=== PATIENT | female | born 1935 | race Caucasian/White ===

== ENCOUNTER 2018-05-01 15:31 | Inpatient (IN) ==
--- NOTE | 2018-05-01 16:41 | ED ---
HPI General Chief Complaint: Psychiatric Symptoms Stated Complaint: Psych eval / [facility]CS[facility] Time Seen by Provider: 05/01/18 16:15 Source: other Mode of arrival: ambulatory Limitations: language barrier (Lithuanian-speaking; is said to speak Jamaican, but refuses) and altered mental status (Dementia) History of Present Illness HPI Narrative: 82-year-old, Lithuanian-speaking female, presents to the emergency department under Rubin act. She arrived from [facility]. She has history of dementia. According to the Rubin act report the patient suffers from advanced dementia and has had agitation and aggressive behavior since admission. She has had multiple medication changes attempting to calm her behavior as well as numerous nonmedical interventions. However she continues hitting, kicking and cursing. Most recently she had another patient this morning with no provocation. My HPI is limited secondary to the patient being uncooperative. She does speak Jamaican but continues to speak excessively in Lithuanian. I cannot get her to stop talking long enough for her to answer a question. I continued to attempt asking her questions, but she would not stop talking and listen. Therefore, HPI is limited. Related Data Home Medications Medication Instructions Recorded Confirmed calcium carbonate [Calcium 600] 600 mg PO BID 05/01/18 05/01/18 cholecalciferol (vitamin D3) 2,000 unit PO DAILY 05/01/18 05/01/18 [Vitamin D3] divalproex [Depakote] 500 mg PO TID 05/01/18 05/01/18 melatonin 10 mg PO HS 05/01/18 05/01/18 pantoprazole [Protonix] 20 mg PO DAILY 05/01/18 05/01/18 pravastatin 20 mg PO DAILY 05/01/18 05/01/18 risperidone [Risperdal] 0.5 mg PO BID 05/01/18 05/01/18 Allergies Allergy/AdvReac Type Severity Reaction Status Date / Time No Known Allergies Allergy Uncoded 08/13/14 16:28 Review of Systems ROS Unobtainable ROS Unobtainable: unobtainable due to mental condition PMFSH Medical History Medical History Anxiety (Acute) Dementia (Acute) Dysphagia (Acute) Gastro-esophageal reflux (Acute) Hypercholesteremia (Acute) Insomnia (Acute) Muscle weakness (Acute) Osteoporosis (Acute) Surgical history unknown (Acute) Vitamin deficiency (Acute) Social History Social History Substance History: No History of Abuse Smoking Status: Unknown if ever smoked How Often Do You Have a Drink Containing Alcohol: Unable to Obtain Recent Travel in [place] within the Last 8 Weeks: No Recent Out of Country Travel within the Last 8 Weeks: No Exam Narrative Exam Narrative: GENERAL: Well-nourished, well-developed elderly, female patient, in no acute distress SKIN: Warm and dry. HEAD: Atraumatic. Normocephalic. EYES: Pupils equal and round. ENT: Mucosa pink and moist. NECK: Supple. Trachea midline. CARDIOVASCULAR: Regular rate and rhythm. No murmur appreciated. RESPIRATORY: No accessory muscle use. Clear to auscultation. Breath sounds equal bilaterally. GASTROINTESTINAL: Abdomen soft, non-tender, nondistended. Hepatic and splenic margins not palpable. Bowel sounds are active 4 quadrants. MUSCULOSKELETAL: No obvious deformities. No clubbing. No cyanosis. No edema. NEUROLOGICAL: Awake and alert. No obvious cranial nerve deficits. Motor grossly within normal limits. Normal speech. Moves all extremities. 5/5 strength to all extremities. PSYCHIATRIC: No delusional thought processes. No hallucinations. Course Initial Documented Vital Signs Temperature 98.2 F 05/01/18 17:27 Pulse Rate 88 05/01/18 17:27 Respiratory Rate 22 05/01/18 17:27 Blood Pressure 136/88 05/01/18 17:27 Pulse Oximetry 96 05/01/18 17:27 Last Documented Vital Signs Temperature 98.2 F 05/01/18 17:27 Pulse Rate 104 H 05/01/18 18:43 Respiratory Rate 18 05/01/18 18:43 Blood Pressure 107/54 L 05/01/18 18:43 Pulse Oximetry 97 05/01/18 18:[address] [facility] Narrative Medical decision making narrative: Patient presents under a Rubin act. Physical examination and vital signs are essentially unremarkable. Patient has no medical complaints to report. Psych screen has been ordered. If the laboratory results are unremarkable, the patient will be medically cleared for psychiatric evaluation and disposition. I was asked to medically clear this patient. The urine is still pending at this time. The patient's laboratory testing otherwise are within limits. I have spoken with the psych nurse practitioner who has requested that we medically clear the patient before the urine is back so she can get her to the floor. She feels that she would be best suited on the floor and the admitted status. She has agreed to have the nursing staff follow the urine and if it is positive she will have the staff notify the admitting physician or myself. Medical Screen Exam Complete: Yes Emergency Medical Condition: Yes Differential Diagnosis Differential Diagnosis: Dementia, aggressive behavior, agitation, medical clearance for psychiatric evaluation Lab Data Result diagrams: 05/01/18 18:20 05/01/18 18:20 Lab Results 05/01/18 05/01/18 05/01/18 Range/Units 18:20 18:20 18:20 WBC 7.8 (4.0-11.0) th/mm3 RBC 3.75 L (4.00-5.30) mil/mm3 Hgb 12.3 (11.6-15.3) gm/dL Hct 36.4 (35.0-46.0) % MCV 97.1 (80.0-100.0) fL MCH 32.8 (27.0-34.0) pg MCHC 33.8 (32.0-36.0) % RDW 14.6 (11.6-17.2) % Plt Count 193 (150-450) th/mm3 MPV 8.7 (7.0-11.0) fL Neut % (Auto) 49.1 (16.0-70.0) % Lymph % (Auto) 30.5 (9.0-44.0) % [place] % (Auto) 11.4 H (0.0-8.0) % Eos % (Auto) 8.3 H (0.0-4.0) % Baso % (Auto) 0.7 (0.0-2.0) % Neut # (Auto) 3.8 (1.8-7.7) th/mm3 Lymph # (Auto) 2.4 (1.0-4.8) th/mm3 [place] # (Auto) 0.9 (0.0-0.9) th/mm3 Eos # (Auto) 0.6 H (0.0-0.4) th/mm3 Baso # (Auto) 0.1 (0.0-0.2) th/mm3 WBC Differential . Differential Comment Auto diff final Sodium 139 (136-145) meq/L Potassium 3.8 (3.5-5.1) meq/L Chloride 105 (98-107) meq/L Carbon Dioxide 27.8 (21.0-32.0) meq/L Anion Gap 6 (5-15) meq/L BUN 21 H (7-18) mg/dL Creatinine 0.71 (0.50-1.00) mg/dL Estimated GFR 79 L (>89) mL/min Random Glucose 125 H (74-106) mg/dL Calcium 9.2 (8.5-10.1) mg/dL Magnesium 2.4 (1.5-2.5) mg/dL Total Bilirubin 0.3 (0.2-1.0) mg/dL AST 27 (15-37) U/L ALT 29 (10-53) U/L Alkaline Phosphatase 73 (45-117) U/L Total Protein 7.5 (6.4-8.2) g/dL Albumin 3.9 (3.4-5.0) g/dL TSH 2.160 (0.358-3.740) uIU/mL Salicylates Less than 1.7 L (2.8-20.0) mg/dL Acetaminophen Less than 2.0 L (10.0-30.0) mcg/mL Valproic Acid (50-100) mcg/mL Serum Alcohol Less than 3 (0-5) mg/dL 05/01/18 Range/Units 18:20 WBC (4.0-11.0) th/mm3 RBC (4.00-5.30) mil/mm3 Hgb (11.6-15.3) gm/dL Hct (35.0-46.0) % MCV (80.0-100.0) fL MCH (27.0-34.0) pg MCHC (32.0-36.0) % RDW (11.6-17.2) % Plt Count (150-450) th/mm3 MPV (7.0-11.0) fL Neut % (Auto) (16.0-70.0) % Lymph % (Auto) (9.0-44.0) % [place] % (Auto) (0.0-8.0) % Eos % (Auto) (0.0-4.0) % Baso % (Auto) (0.0-2.0) % Neut # (Auto) (1.8-7.7) th/mm3 Lymph # (Auto) (1.0-4.8) th/mm3 [place] # (Auto) (0.0-0.9) th/mm3 Eos # (Auto) (0.0-0.4) th/mm3 Baso # (Auto) (0.0-0.2) th/mm3 WBC Differential Differential Comment Sodium (136-145) meq/L Potassium (3.5-5.1) meq/L Chloride (98-107) meq/L Carbon Dioxide (21.0-32.0) meq/L Anion Gap (5-15) meq/L BUN (7-18) mg/dL Creatinine (0.50-1.00) mg/dL Estimated GFR (>89) mL/min Random Glucose (74-106) mg/dL Calcium (8.5-10.1) mg/dL Magnesium (1.5-2.5) mg/dL Total Bilirubin (0.2-1.0) mg/dL AST (15-37) U/L ALT (10-53) U/L Alkaline Phosphatase (45-117) U/L Total Protein (6.4-8.2) g/dL Albumin (3.4-5.0) g/dL TSH (0.358-3.740) uIU/mL Salicylates (2.8-20.0) mg/dL Acetaminophen (10.0-30.0) mcg/mL Valproic Acid 71 (50-100) mcg/mL Serum Alcohol (0-5) mg/dL Discharge Plan Discharge Disposition Patient Disposition: 30 Still Patient Discharge Condition Condition: Stable Physicians Team ED Provider: Patrick Ren ED Midlevel Provider: Sonja Prajapati Primary Care Provider: Von Hood Rxs /Orders / Referrals /Forms Prescriptions: No Action pantoprazole [Protonix] 20 mg Tablet,Delayed Release (Dr/Ec) 20 mg PO DAILY RF: 0 calcium carbonate [Calcium 600] 600 mg calcium (1,500 mg) Tablet 600 mg PO BID RF: 0 pravastatin 20 mg Tablet 20 mg PO DAILY RF: 0 cholecalciferol (vitamin D3) [Vitamin D3] 2,000 unit Tablet 2,000 unit PO DAILY RF: 0 divalproex [Depakote] 500 mg Tablet,Delayed Release (Dr/Ec) 500 mg PO TID RF: 0 risperidone [Risperdal] 0.5 mg Tablet 0.5 mg PO BID RF: 0 melatonin 10 mg Tablet,Disintegrating 10 mg PO HS RF: 0 Status ED Status: Medically Cleared
[2018-05-01] MEDS ORDERED: QUEtiapine 25 MG Tablet PO ONE ×2 (17:12→18:48)
[2018-05-01 18:40] LABS: Baso # (Auto) 0.1 th/mm3 (0.0-0.2); Baso % (Auto) 0.7 % (0.0-2.0); Eos # (Auto) 0.6 th/mm3 (0.0-0.4); Eos % (Auto) 8.3 % (0.0-4.0); Hematocrit 36.4 % (35.0-46.0); Hemoglobin 12.3 gm/dL (11.6-15.3); Lymph # (Auto) 2.4 th/mm3 (1.0-4.8); Lymph % (Auto) 30.5 % (9.0-44.0); Mean Corpuscular HGB Conc 33.8 % (32.0-36.0); Mean Corpuscular Hemoglobin 32.8 pg (27.0-34.0); Mean Corpuscular Volume 97.1 fL (80.0-100.0); Mean Platelet Volume 8.7 fL (7.0-11.0); Mono # (Auto) 0.9 th/mm3 (0.0-0.9); Mono % (Auto) 11.4 % (0.0-8.0); Neut # (Auto) 3.8 th/mm3 (1.8-7.7); Neut % (Auto) 49.1 % (16.0-70.0); Platelet Count 193 th/mm3 (150-450); Red Blood Count 3.75 mil/mm3 (4.00-5.30); Red Cell Distribution Width 14.6 % (11.6-17.2); White Blood Count 7.8 th/mm3 (4.0-11.0)
[2018-05-01 18:55] LABS: Albumin 3.9 g/dL (3.4-5.0); Anion Gap 6 meq/L (5-15); Aspartate Aminotransferase 27 U/L (15-37); Blood Urea Nitrogen 21 mg/dL (7-18); Calcium 9.2 mg/dL (8.5-10.1); Carbon Dioxide 27.8 meq/L (21.0-32.0); Chloride 105 meq/L (98-107); Glomerular Filtration Rate 79 mL/min (>89); Glucose,Random 125 mg/dL (74-106); Magnesium 2.4 mg/dL (1.5-2.5); Potassium 3.8 meq/L (3.5-5.1); Sodium 139 meq/L (136-145)
[2018-05-01 18:56] LABS: Alanine Aminotransferase 29 U/L (10-53)
[2018-05-01 19:05] LABS: Alkaline Phosphatase 73 U/L (45-117); Total Protein 7.5 g/dL (6.4-8.2)
--- NOTE | 2018-05-01 19:13 | P.PNPSY ---
History of Present Illness HPI Narrative: The patient is a 82-year-old, Norwegian-speaking, , female, resident of [facility] with reported dementia with behaviors, presents to the emergency department under Rubin act initiated by MARI Najera. The Rubin act alleges that the patient has been agitated, aggressive since admission. She has had multiple medication changes attempting to calm behavior as well as numerous non medicinal interventions. However she continues hitting , kicking and cursing. Most recently she had another patient with no provocation. According to her paperwork from the facility she was admitted there February 01, 2018. Reviewing her electronic medical record I see no previous contact with [facility] psychiatry Department. Basic lab work was obtained. The UA is pending. Current VPA level 71. The patient presents to [facility] and she is exhibiting intermittent agitation with wanting to leave the unit. I am unable to engage her in any kind of conversation. Her answers are random. She has been talking nonstop since her arrival at [facility]. She has been wandering into other patient' s rooms, attempting to elope from the unit. She believes that there are some girls by the door and she needs to go and be with them. Attempts at redirecting her patient becomes angry and has made attempts at striking different staff members. She has been medicated with Seroquel 25 mg p.o. with little benefit. At this time this patient requires inpatient treatment in order to more aggressively manage her behaviors with pharmacological interventions. I contacted her son who is listed primary contact. He states that his mother is usually aggressive and so this behavior is not usual for her. He reports no previous psychiatric history. Advised him of admission and he agrees. with such. DX. Dementia with Behaviors Pt will be admitted for further observation, stabilization and safety.
[2018-05-01] MEDS ORDERED: Aluminum/Magnesium/Simethacone Susp 30 ML UDC PO PRN (19:40)
[2018-05-01] MEDS: CALCIUM CARBONATE 600 MG PO SCH (21:52)
[2018-05-02] MEDS: Pantoprazole Sodium 20 MG DR Tablet PO SCH (08:30)
--- NOTE | 2018-05-02 10:51 | P.HPPSY ---
Provisional Diagnosis Admission Date: May 01, 2018 19:43 [place] I.: Dementia with behavioral disturbances Competence Certification of Person's Competence To Provide Express and Informed Consent I have personally examined Nasima Martinez, a person being served at [facility] on, May 02, 2018 1049. Express and informed consent means consent voluntarily given in writing, by a competent person, after sufficient explanation and disclosure of the subject matter involved to enable the person to make a knowing and willful decision without any element of force, fraud, deceit, duress, or other form of constraint or coercion. This person is 18 years of age or older, is not now known to be incompetent to consent to treatment with a guardian advocate, and does not have a health care surrogate or proxy currently making medical treatment decisions. I have found this person to be one of the following: [] Competent to provide express and informed consent, as defined above, for voluntary admission to this facility and is competent to provide express and informed consent for treatment. He/she has the consistent capacity to make well reasoned, willful, and knowing decisions concerning his or her medical or mental health treatment. The person fully and consistently understands the purpose of the admission for examination/placement and is fully capable of personally exercising all rights assured [place]xxx] Incompetent to provide express and informed consent to voluntary admission , and this is incompetent to provide express and informed consent to treatment. The person must be transferred to involuntary status and a petition for a guardian advocate filed with the Circuit Court. [] Refusing to provide express and informed consent to voluntary admission but is competent to provide express and informed consent for treatment. The person must be discharged or transferred to involuntary status. Form shall be completed within 24 hours of a person's arrival at the receiving facility and filed in the clinical record of each person: 1. Admitted on a voluntary basis 2. Permitted to provide express and informed consent to his/her own treatment 3. Allowed to transfer from involuntary to voluntary status 4. Prior to permitting a person to consent to his or her own treatment after having been previously found incompetent to consent to treatment. History of Present Illness Capacity: Lacks capacity History of Present Illness: Patient is a 82-year-old woman, domiciled in a nursing facility were previously living at home with son, with a past psychiatric history of dementia with anxiety along with past medical history significant for hyperlipidemia GERD which patient was brought in under Rubin act after patient was having "violent behaviors, hitting by others at staff and verbally aggressive and threatening" as per [facility] report which patient was admitted to the inpatient psychiatry unit for further evaluation and management. Patient was found heavily on unit unable to provide any adequate history, rambling at times and noted with baseline confusion requiring much redirection as patient constantly would wander into other patient's rooms. As per chart patient was aggressive toward providers in the ED but since transfer to the inpatient unit has not noted to have any aggressive behavior or threatening behavior toward others. 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 He mentions the patient did a lot of wandering in [facility] there was previous to tried on Xanax with not much response to current behavior. As per chart patient has Depakote level which is therapeutic limits. Discussion of continuing current medication regimen was reviewed with patient's son to include Depakote and risperidone along with medications for chronic medical illnesses which she agreed and with modification of treatment as her admission progress. Rest of history unable to obtain due to patient's current mental status and neurocognitive deficits secondary to dementia. - Inpatient Certification I certify that the inpatient services were ordered in accordance with Medicare regulations governing the order. This includes certification that hospital inpatient services are reasonable and necessary and in the case of services not specified as inpatient-only under 42 CFR 419.22(n), that they are appropriately provided as inpatient services in accordance to with the 2-midnight benchmark under 43 CFR 412.3(e) I certify that inpatient psychiatric hospital services are medically necessary. Evaluation and treatment and/or diagnostic testing are expected to improve the patient's condition. The patient needs on a daily basis, active treatment furnished directly by or requiring the supervision of inpatient psychiatric facility personnel. Estimated Total Length of Stay (Days): 8 Plans for Post Hospital Care: SNF Review of Systems All other systems reviewed negative except as stated in HPI PMFSH - History History Provided By: Patient, Family Member, Medical Record - Medical History Medical History: Medical History (Last Updated 05/01/18 @ 17:06 by Cole Monteiro RN) Anxiety Dementia Dysphagia Gastro-esophageal reflux Hypercholesteremia Insomnia Muscle weakness Osteoporosis Surgical history unknown Vitamin deficiency - Tobacco History Smoking Status: Unknown if ever smoked - Alcohol History How Often Do You Have a Drink Containing Alcohol: Unable to Obtain - Substance Use History Substance History: No History of Abuse - Travel History Recent Travel in the [place] Within the Last 8 Weeks: No Recent Travel Out of the Country Within the Last 8 Weeks: No - Immunization History Tetanus Immunization: Unable to Assess Quality Measures - Psychiatric History Psychological trauma history: Unable to assess due to patient's neurocognitive deficits. Violence risk to others in the last 6 months: Increase due to recent aggressive behavior. Violence risk to self in the last 6 months: Low - Substance Abuse History Drug or alcohol use in the past 12 months: Unable to assess due to patient's neurocognitive deficits. - Patient Strengths Patient's strengths (minimum of 2): Verbal and communicative Medications and Allergies Active Medications: Active Medications Al Hydrox/Mg Hydrox/Simethicone (Mag-Al Plus Susp Liq) 30 ml PO Q6H PRN PRN Reason: DYSPEPSIA Al Hydroxide/Mg Hydroxide (Milk Of Magnesia Liq) 30 ml PO Q12H PRN PRN Reason: Mild Constipation Calcium Carbonate (Oscal) 500 mg PO BID [facility] Divalproex Sodium (Depakote Dr) 500 mg PO TID [facility] Lactulose (Lactulose Liq) 30 ml PO DAILY PRN PRN Reason: SEVERE CONSITIPATION Pantoprazole Sodium (Protonix) 20 mg PO DAILY [facility] Last Admin: 05/02/18 08:30 Dose: 20 mg Pravastatin Sodium (Pravachol) 20 mg PO DAILY [facility] Last Admin: 05/02/18 08:30 Dose: 20 mg Risperidone (Risperdal) 0.5 mg PO BID [facility] Sennosides (Senokot) 17.2 mg PO Q12H PRN PRN Reason: Moderate Constipation Vitamin D (Vitamin D3) 2,000 unit PO DAILY [facility] Allergies Allergy/AdvReac Type Severity Reaction Status Date / Time No Known Allergies Allergy Uncoded 08/13/14 16:28 Home Medications Medication Instructions Recorded Confirmed Type calcium carbonate [Calcium 600] 600 mg PO BID 05/01/18 05/01/18 History cholecalciferol (vitamin D3) 2,000 unit PO DAILY 05/01/18 05/01/18 History [Vitamin D3] divalproex [Depakote] 500 mg PO TID 05/01/18 05/01/18 History melatonin 10 mg PO HS 05/01/18 05/01/18 History pantoprazole [Protonix] 20 mg PO DAILY 05/01/18 05/01/18 History pravastatin 20 mg PO DAILY 05/01/18 05/01/18 History risperidone [Risperdal] 0.5 mg PO BID 05/01/18 05/01/18 History Results - Labs CBC & Chem 7: 05/01/18 18:20 05/02/18 08:21 Labs: Laboratory Results - last 24 hr 05/01/18 05/01/18 05/01/18 18:20 18:20 18:20 WBC 7.8 RBC 3.75 L Hgb 12.3 Hct 36.4 MCV 97.1 MCH 32.8 MCHC 33.8 RDW 14.6 Plt Count 193 MPV 8.7 Neut % (Auto) 49.1 Lymph % (Auto) 30.5 [place] % (Auto) 11.4 H Eos % (Auto) 8.3 H Baso % (Auto) 0.7 Neut # (Auto) 3.8 Lymph # (Auto) 2.4 [place] # (Auto) 0.9 Eos # (Auto) 0.6 H Baso # (Auto) 0.1 WBC Differential . Differential Comment Auto diff final Sodium 139 Potassium 3.8 Chloride 105 Carbon Dioxide 27.8 Anion Gap 6 BUN 21 H Creatinine 0.71 Estimated GFR 79 L Random Glucose 125 H Calcium 9.2 Magnesium 2.4 Total Bilirubin 0.3 AST 27 ALT 29 Alkaline Phosphatase 73 Total Protein 7.5 Albumin 3.9 TSH 2.160 Salicylates Less than 1.7 L Acetaminophen Less than 2.0 L Valproic Acid Serum Alcohol Less than 3 05/01/18 18:20 WBC RBC Hgb Hct MCV MCH MCHC RDW Plt Count MPV Neut % (Auto) Lymph % (Auto) [place] % (Auto) Eos % (Auto) Baso % (Auto) Neut # (Auto) Lymph # (Auto) [place] # (Auto) Eos # (Auto) Baso # (Auto) WBC Differential Differential Comment Sodium Potassium Chloride Carbon Dioxide Anion Gap BUN Creatinine Estimated GFR Random Glucose Calcium Magnesium Total Bilirubin AST ALT Alkaline Phosphatase Total Protein Albumin TSH Salicylates Acetaminophen Valproic Acid 71 Serum Alcohol Exam Vital signs: Vital Signs 05/01/18 17:27 05/01/18 18:18 05/01/18 18:43 Temperature 98.2 F Pulse Rate 88 104 H Respiratory Rate 22 18 Blood Pressure 136/88 136/108 H 107/54 L Pulse Oximetry 96 97 05/02/18 06:00 Temperature 98 F Pulse Rate 86 Respiratory Rate 16 Blood Pressure 114/60 Pulse Oximetry 93 L Intake & Output 05/01/18 05/02/18 05/02/18 18:59 06:59 18:59 Weight 100 kg Other: # Voids 1 Narrative: Patient not noted to be in acute distress, no gross motor abnormalities, no signs of tremor or EPS, no psychomotor agitation or retardation. - Constitutional no acute distress Mental Status Examination Appearance: Appropriate Consciousness: Alert Orientation: Person Motor Activity: Normal gait Speech: Unremarkable Language: Adequate Fund of Knowledge: Inadequate Attention and Concentration: Easily distracted Memory: Impaired Mood: Other ("I'm fine") Affect: Labile Thought Process & Associations: Other (concrete) Thought Content: Other (flight of ideas) Hallucination Type: None Delusion Type: None Suicidal Ideation: No Suicidal Plan: No Suicidal Intention: No Homicidal Ideation: No Homicidal Plan: No Homicidal Intention: No Insight: Poor Judgment: Poor Assessment and Plan - Assessment (1) Dementia with behavioral disturbance Code(s): F03.91 - Unspecified dementia with behavioral disturbance Status: Acute - Plan Plan: Estimated LOS: [] days Patient is a 82-year-old woman who carries a diagnosis of dementia, with no previous psychiatric admissions here at [place], who was brought under Rubin act due to recent aggressive behavior at the [facility]. We will have patient resume Depakote 500 mg p.o. 3 times daily along with risperidone 0.5 g p.o. twice daily with upper titration as needed. Patient's Depakote level was found within therapeutic limits and medications and doses were confirmed through the ED upon arrival to the ER with [facility] over the phone. We will request fax of paper copy of patient's medication list from [facility]. Due to patient's dementia patient is able to sign himself voluntarily therefore petition for involuntary hospitalization started. Second opinion requested. We will continue current treatment. Continue to monitor mood and behavior. Hospitalist input appreciated. Discharge planning a progress. Justification for Continued Inpatient Stay: At risk of further decompensation at lower level care.
[2018-05-02 11:11] LABS: Calcium 8.1 mg/dL (8.5-10.1); Carbon Dioxide 30.8 meq/L (21.0-32.0); Potassium 3.8 meq/L (3.5-5.1)
[2018-05-02 11:35] LABS: Chol/HDL Ratio 2.05 Ratio; Free T4 (Free Thyroxine) 0.88 ng/dL (0.76-1.46); HDL Cholesterol 70.9 mg/dL (40.0-60.0)
[2018-05-02] MEDS: Calcium Carbonate 500 MG Tablet PO SCH ×2 (11:40→20:24)
[2018-05-02 11:44] LABS: Hemoglobin A1c 5.9 % (4.3-6.0)
--- NOTE | 2018-05-02 13:05 | P.CONPSY ---
Provisional Diagnosis Admission Date: May 01, 2018 19:43 Mclean I.: Dementia with behavioral disturbances History of Present Illness Service: Psychaitry Primary Care Provider: Von Hood MD History of Present Illness: The patient is a 82 year-old woman, bilingual, , resident of [facility], with psychiatric history dementia with behavioral disturbance, who presents to the emergency department under Rubin act initiated by MARI Najera. The Rubin act alleges that the patient has been agitated, aggressive since admission. She has had multiple medication changes attempting to calm behavior as well as numerous non medicinal interventions. However she continues hitting, kicking and cursing. Most recently she had another patient with no provocation. According to her paperwork from the facility she was admitted there February 01, 2018. Reviewing her electronic medical record I see no previous contact with [facility] psychiatry Department. Basic lab work was obtained. VPA level 71. Patient was consulted to me for second opinion. On my evaluation I found the patient calm, superficially cooperative, she is goal-directed, lining up the towers, stating that she is very happy, that she has been busy "doing this and fixing this". She does not know the reason she was brought to the hospital, she is oriented in person, disoriented in time and place, denies symptoms of depression, she does not present any evidence of suicidal or homicidal ideation, paranoia, visual or auditory hallucinations at this moment. There is no agitation or aggressive behavior at this moment. [facility] - History History Provided By: Medical Record - Medical History Medical History: Medical History (Last Updated 05/01/18 @ 17:06 by Cole Monteiro RN) Anxiety Dementia Dysphagia Gastro-esophageal reflux Hypercholesteremia Insomnia Muscle weakness Osteoporosis Surgical history unknown Vitamin deficiency - Tobacco History Smoking Status: Unknown if ever smoked - Alcohol History How Often Do You Have a Drink Containing Alcohol: Unable to Obtain - Substance Use History Substance History: No History of Abuse - Travel History Recent Travel in the [place] Within the Last 8 Weeks: No Recent Travel Out of the Country Within the Last 8 Weeks: No - Immunization History Tetanus Immunization: Unable to Assess Medications and Allergies Active Medications: Active Medications Al Hydrox/Mg Hydrox/Simethicone (Mag-Al Plus Susp Liq) 30 ml PO Q6H PRN PRN Reason: DYSPEPSIA Al Hydroxide/Mg Hydroxide (Milk Of Magnesia Liq) 30 ml PO Q12H PRN PRN Reason: Mild Constipation Calcium Carbonate (Oscal) 500 mg PO BID [facility] Last Admin: 05/02/18 11:40 Dose: 500 mg Divalproex Sodium (Depakote Dr) 500 mg PO TID [facility] Lactulose (Lactulose Liq) 30 ml PO DAILY PRN PRN Reason: SEVERE CONSITIPATION Melatonin (Melatonin) 10 mg PO HS [facility] Pantoprazole Sodium (Protonix) 20 mg PO DAILY [facility] Last Admin: 05/02/18 08:30 Dose: 20 mg Pravastatin Sodium (Pravachol) 20 mg PO DAILY [facility] Last Admin: 05/02/18 08:30 Dose: 20 mg Risperidone (Risperdal) 0.5 mg PO BID [facility] Last Admin: 05/02/18 11:40 Dose: 0.5 mg Sennosides (Senokot) 17.2 mg PO Q12H PRN PRN Reason: Moderate Constipation Vitamin D (Vitamin D3) 2,000 unit PO DAILY [facility] Last Admin: 05/02/18 11:40 Dose: 2,000 unit Allergies Allergy/AdvReac Type Severity Reaction Status Date / Time No Known Allergies Allergy Uncoded 08/13/14 16:28 Home Medications Medication Instructions Recorded Confirmed Type calcium carbonate [Calcium 600] 600 mg PO BID 05/01/18 05/01/18 History cholecalciferol (vitamin D3) 2,000 unit PO DAILY 05/01/18 05/01/18 History [Vitamin D3] divalproex [Depakote] 500 mg PO TID 05/01/18 05/01/18 History melatonin 10 mg PO HS 05/01/18 05/01/18 History pantoprazole [Protonix] 20 mg PO DAILY 05/01/18 05/01/18 History pravastatin 20 mg PO DAILY 05/01/18 05/01/18 History risperidone [Risperdal] 0.5 mg PO BID 05/01/18 05/01/18 History Exam Vital signs: Vital Signs 05/01/18 17:27 05/01/18 18:18 05/01/18 18:43 Temperature 98.2 F Pulse Rate 88 104 H Respiratory Rate 22 18 Blood Pressure 136/88 136/108 H 107/54 L Pulse Oximetry 96 97 05/02/18 06:00 Temperature 98 F Pulse Rate 86 Respiratory Rate 16 Blood Pressure 114/60 Pulse Oximetry 93 L Intake & Output 05/01/18 05/02/18 05/02/18 18:59 06:59 18:59 Weight 100 kg Other: # Voids 1 Mental Status Examination Appearance: Appropriate Consciousness: Alert Orientation: Person Motor Activity: Normal gait Speech: Unremarkable Language: Adequate Fund of Knowledge: Inadequate Attention and Concentration: Inadequate Memory: Impaired Mood: Appropriate Affect: Appropriate Thought Process & Associations: Loose associations Thought Content: Bizarre thinking Hallucination Type: None Delusion Type: None Suicidal Ideation: No Suicidal Plan: No Suicidal Intention: No Homicidal Ideation: No Homicidal Plan: No Insight: Poor Judgment: Poor Assessment and Plan - Assessment (1) Dementia with behavioral disturbance Code(s): F03.91 - Unspecified dementia with behavioral disturbance Status: Acute - Plan Plan: I have seen and examined this patient, I have reviewed the documentation, I have discussed this case personally with Dr. Adorno, I agree and concur with his assessment and plan. Consult appreciated. Justification for Continued Inpatient Stay: continue admission.
[2018-05-02] MEDS: Divalproex 500 MG DR Tablet PO SCH ×3 (13:42→17:28)
[2018-05-02] MEDS: CALCIUM CARBONATE 600 MG PO SCH (13:43)
--- NOTE | 2018-05-02 13:48 | ECG ---
Date Performed: 05/02/2018 Time Performed: 07:18:45 PTAGE: 82 years EKG: Sinus rhythm WITH FIRST DEGREE AV BLOCK INDETERMINATE AXIS MINIMAL ST DEPRESSION ABNORMAL ECG Since the PREVIOUS TRACING , no significant change noted PREVIOUS TRACIN05/19/2012 12.39 DOCTOR: Trace Coles Interpretating Date/Time 05/02/2018 13:44:33
[2018-05-02] MEDS: Melatonin 5 MG Tablet PO SCH (20:24)
[2018-05-03] MEDS: Pantoprazole Sodium 20 MG DR Tablet PO SCH (08:52)
[2018-05-03] MEDS: Calcium Carbonate 500 MG Tablet PO SCH ×2 (09:08→20:40)
--- NOTE | 2018-05-03 13:04 | P.PNPSY ---
Subjective Remarks: Reviewed electronic medical records and discussed case with staff. Follow-up was conducted in the hallway with DELLA Campa present. Patient was observed on the unit attempting to get into the nurse's station. Patient is grossly confused and appears unable to follow conversations or answer questions at this time. She alternates rapidly between [place] and Thai none of which is making sense. She has had no aggression at this time however there were reports of her wandering into other patient's rooms last night. Mental Status Examination Appearance: Appropriate Consciousness: Alert Orientation: Person Motor Activity: Normal gait Speech: Unremarkable Language: Adequate Fund of Knowledge: Inadequate Attention and Concentration: Easily distracted Memory: Impaired Mood: Other ("I'm fine") Affect: Labile Thought Process & Associations: Other (concrete) Thought Content: Other (flight of ideas) Hallucination Type: None Delusion Type: None Suicidal Ideation: No Suicidal Plan: No Suicidal Intention: No Homicidal Ideation: No Homicidal Plan: No Homicidal Intention: No Insight: Poor Judgment: Poor Assessment and Plan - Assessment (1) Dementia with behavioral disturbance Code(s): F03.91 - Unspecified dementia with behavioral disturbance Status: Acute - Plan Plan: Patient will be reevaluated by the attending psychiatrist. Continue with current treatment plan. Justification for Continued Inpatient Stay: Moving this patient to a less restrictive environment would likely result in decompensation.
--- NOTE | 2018-05-03 18:49 | P.CON ---
History of Present Illness Service: [facility] Consult date: 05/03/18 Requesting Physician: Rafaela Thompson Reason for Consult: Family reports patient complained of chest pain Primary Care Provider: Von Hood MD Chief Complaint: chest pain complatint History of Present Illness: 82-year-old female with past medical history significant for hypercholesteremia, osteoporosis, dysphasia, anxiety, GERD and vitamin D deficiency who presented to the emergency department under Rubin act from [facility] due to aggressiveness and agitation. Apparently patient also became physical hitting, kicking and cursing. Patient has been admitted to psychiatry department for further evaluation. [facility] consulted due to reports of chest pain per family. Patient is seen and examined ambulating in psychiatry mosquera in no acute distress with no visible deficits. She is Israeli-speaking as is this author. She is alert and oriented x0, does not appropriately respond to her name. Disorganized thoughts , pressured speech and intrusive. Multiple attempts made to ask patient if she is in pain both in Israeli and Japanese however at some point patient denies pain and during other points she answers questions inappropriately. Her conversation jumps from topic to topic. Patient is hemodynamically stable. Nurse reports that family had noted patient to complain of chest pain yesterday as well as today. No other acute events reported by nurse. Review of Systems All other systems reviewed negative except as stated in HPI [facility] - History History Provided By: Medical Record - Medical History Medical History: Medical History (Last Reviewed 05/03/18 @ 18:42 by Emma Morris) Anxiety Dementia Dysphagia Gastro-esophageal reflux Hypercholesteremia Insomnia Muscle weakness Osteoporosis Surgical history unknown Vitamin deficiency - Social History I have reviewed the patient's Social History: Yes - Tobacco History Smoking Status: Unknown if ever smoked - Alcohol History How Often Do You Have a Drink Containing Alcohol: Unable to Obtain - Substance Use History Substance History: No History of Abuse - Travel History Recent Travel in the [place] Within the Last 8 Weeks: No Recent Travel Out of the Country Within the Last 8 Weeks: No - Immunization History Tetanus Immunization: Unable to Assess Medications and Allergies Active Medications: Active Medications Al Hydrox/Mg Hydrox/Simethicone (Mag-Al Plus Susp Liq) 30 ml PO Q6H PRN PRN Reason: DYSPEPSIA Al Hydroxide/Mg Hydroxide (Milk Of Magnesia Liq) 30 ml PO Q12H PRN PRN Reason: Mild Constipation Calcium Carbonate (Oscal) 500 mg PO BID [facility] Last Admin: 05/03/18 09:08 Dose: Not Given Lactulose (Lactulose Liq) 30 ml PO DAILY PRN PRN Reason: SEVERE CONSITIPATION Melatonin (Melatonin) 10 mg PO HS [facility] Last Admin: 05/02/18 20:24 Dose: 10 mg Pantoprazole Sodium (Protonix) 20 mg PO DAILY [facility] Last Admin: 05/03/18 08:52 Dose: Not Given Pravastatin Sodium (Pravachol) 20 mg PO DAILY [facility] Last Admin: 05/03/18 08:52 Dose: Not Given Risperidone (Risperdal) 0.5 mg PO BID [facility] Last Admin: 05/03/18 08:52 Dose: 0.5 mg Sennosides (Senokot) 17.2 mg PO Q12H PRN PRN Reason: Moderate Constipation Valproate Sodium (Depakene Liq) 500 mg PO BID [facility] Last Admin: 05/03/18 08:52 Dose: 500 mg Vitamin D (Vitamin D3) 2,000 unit PO DAILY [facility] Last Admin: 05/03/18 08:52 Dose: Not Given Allergies Allergy/AdvReac Type Severity Reaction Status Date / Time No Known Allergies Allergy Uncoded 08/13/14 16:28 Home Medications Medication Instructions Recorded Confirmed Type calcium carbonate [Calcium 600] 600 mg PO BID 05/01/18 05/01/18 History cholecalciferol (vitamin D3) 2,000 unit PO DAILY 05/01/18 05/01/18 History [Vitamin D3] divalproex [Depakote] 500 mg PO TID 05/01/18 05/01/18 History melatonin 10 mg PO HS 05/01/18 05/01/18 History pantoprazole [Protonix] 20 mg PO DAILY 05/01/18 05/01/18 History pravastatin 20 mg PO DAILY 05/01/18 05/01/18 History risperidone [Risperdal] 0.5 mg PO BID 05/01/18 05/01/18 History Physical Exam Vital signs: Vital Signs 05/03/18 07:11 05/03/18 15:39 Temperature 98.1 F Pulse Rate 84 107 H Respiratory Rate 18 Blood Pressure 137/52 L 153/61 H Pulse Oximetry 99 98 Intake & Output 05/02/18 05/03/18 05/03/18 18:59 06:59 18:59 Intake Total 240 / 240 0 / 0 1200 / 1200 Output Total 0 / 0 Balance 240 / 240 0 / 0 1200 / 1200 Intake: Oral 240 / 240 0 / 0 1200 / 1200 Oral Supplement 0 / 0 Output: Urine/Stool Mix 0 / 0 Other: # Voids 1 1 Narrative: GENERAL: Well-developed thin elderly female in no acute distress ambulating. SKIN: Warm and dry. Right chin small ecchymotic area noted. HEAD: Atraumatic. Normocephalic. EYES: Pupils equal and round, cataract on left eye. No scleral icterus. No injection or drainage. ENT: No nasal bleeding or discharge. Mucous membranes pink and moist. NECK: Trachea midline. CARDIOVASCULAR: Regular rate and rhythm. RESPIRATORY: No accessory muscle use. Clear to auscultation. Breath sounds equal bilaterally. GASTROINTESTINAL: Abdomen soft, non-tender, nondistended. + Bowel sounds MUSCULOSKELETAL: Extremities without clubbing, cyanosis, or edema. No obvious deformities. NEUROLOGICAL: Awake, alert, confused, oriented x0. No obvious cranial nerve deficits. Motor grossly within normal limits. Five out of 5 muscle strength in the arms and legs. Normal speech. PSYCHIATRIC: Poor insight and judgment Results - Labs CBC & Chem 7: 05/01/18 18:20 05/02/18 08:21 Labs: Laboratory Results - last 24 hr 05/03/18 17:10 Troponin I Less than 0.02 L Assessment and Plan - Plan 82-year-old female with past medical history significant for hypercholesteremia, osteoporosis, dysphasia, anxiety, GERD and vitamin D deficiency who presented to the emergency department under Rubin act from [facility] due to aggressiveness and agitation. Apparently patient also became physical hitting, kicking and cursing. Patient has been admitted to psychiatry department for further evaluation. [facility] consulted due to reports of chest pain per family. Dementia, aggressive behavior -Treatment plan per psychiatry Reports of chest pain -Stat troponin negative -Stat EKG with sinus rhythm, noted PACs and PVCs, nonspecific ST and T wave abnormalities. No acute findings, discussed with -Patient hemodynamically stable, history of dementia, no complaints of pain. DVT prophylaxisambulation Thank you for this consultation. Will sign off, please reconsult if needed. Discussed Condition With: Patient, RN,
[2018-05-03] MEDS: Melatonin 5 MG Tablet PO SCH (20:40)
[2018-05-04] MEDS: Pantoprazole Sodium 20 MG DR Tablet PO SCH (08:14)
[2018-05-04] MEDS: Calcium Carbonate 500 MG Tablet PO SCH ×2 (08:16→20:48)
--- NOTE | 2018-05-04 08:42 | P.PNPSY ---
Subjective Remarks: Reviewed electronic medical records and discussed case with staff. Follow-up was conducted in the patient's room with DELLA Campa present. Patient was making her bed and folding the corners. Nursing reports that she keeps busy. She is not eating meals so the staff is giving her fluids and snacks throughout the day. She speaks some Faroese, but Tanzanian is her primary language. She is cooperative and sleeping well. Review of Systems All other systems reviewed negative except as stated in HPI Mental Status Examination Appearance: Appropriate Consciousness: Alert Orientation: Person Motor Activity: Normal gait Speech: Unremarkable Language: Adequate Fund of Knowledge: Inadequate Attention and Concentration: Easily distracted Memory: Impaired Mood: Other ("I'm fine") Affect: Labile Thought Process & Associations: Other (concrete) Thought Content: Other (flight of ideas) Hallucination Type: None Delusion Type: None Suicidal Ideation: No Suicidal Plan: No Suicidal Intention: No Homicidal Ideation: No Homicidal Plan: No Homicidal Intention: No Insight: Poor Judgment: Poor Assessment and Plan - Assessment (1) Dementia with behavioral disturbance Code(s): F03.91 - Unspecified dementia with behavioral disturbance Status: Acute - Plan Plan: Patient will be reevaluated by the attending psychiatrist. Continue with current treatment plan. Justification for Continued Inpatient Stay: Moving patient to a less restrictive environment may result in her decompensation.
[2018-05-04] MEDS ORDERED: Haloperidol Inj 5 MG/ML Ampul ONE (16:45)
[2018-05-04] MEDS ORDERED: Haloperidol Inj 5 MG/ML Ampul IM ONE (17:15)
[2018-05-04] MEDS: Melatonin 5 MG Tablet PO SCH ×2 (20:47→21:17)
[2018-05-05] MEDS: Calcium Carbonate 500 MG Tablet PO SCH ×2 (09:17→20:35)
[2018-05-05] MEDS: Pantoprazole Sodium 20 MG DR Tablet PO SCH (09:17)
--- NOTE | 2018-05-05 11:55 | P.TTN ---
- Patient Problems Problems: 1. Discharge planning 2. Medication compliance 3. Knowledge deficit 4. Lack of coping skills - Progress Toward Goals Provider Present: Dr. Thais Adorno Provider Input: 05/05/18: Pt needed a ETO on Saturday05/04/18. Pt is wandering into patients room. Patient is confused, hearinf impaired. Possibly increasing Respitrol. Nurse(s) Present: Yesi HULL Nurse Input: 05/05/18: Inappropriate, walking down the halls with no pants on. Uncooperative with redirection. Med Compliant. Psychiatric Counselors Present: Sherlyn Davis [facility] Psychiatric Therapist Input: 05/05/18 Nuris: No insight, needs more rime, needs placement. Group Spec/RT/OT/PRATT Present: YEHUDA Bean Group Spec/RT/OT/PRATT Input: 05/05/18: Patient needs encouragement and guidance when attending the group activities. Pt is hearing impaired. - Discharge Plan 05/05/18: will discuss [place] for possible discharge. - Documentation Teaching Recipient: Patient
--- NOTE | 2018-05-05 13:32 | P.PNPSY ---
Subjective Remarks: Patient seen for follow-up, chart reviewed. Discussion with nursing staff reported that patient still confused, eating and drinking well, partially taking medications, required ETO x1 yesterday afternoon with good affect. Patient was found ambulating on unit after having eating lunch continue to be noted to be confused and occasional rambling but mostly redirectable. Patient has hearing impairment which also impedes on communication with patient effectively. Patient partially taking medications and requires encouragement to do so. No aggressive behavior or irritability today. Review of Systems All other systems reviewed negative except as stated in HPI Mental Status Examination Appearance: Appropriate Consciousness: Alert Orientation: Person Motor Activity: Normal gait Speech: Unremarkable Language: Adequate Fund of Knowledge: Inadequate Attention and Concentration: Easily distracted Memory: Impaired Mood: Other ("I'm fine") Affect: Euthymic Thought Process & Associations: Other (concrete) Thought Content: Other (flight of ideas) Hallucination Type: None Delusion Type: None Suicidal Ideation: No Suicidal Plan: No Suicidal Intention: No Homicidal Ideation: No Homicidal Plan: No Homicidal Intention: No Insight: Poor Judgment: Poor Assessment and Plan - Assessment (1) Dementia with behavioral disturbance Code(s): F03.91 - Unspecified dementia with behavioral disturbance Status: Acute - Plan Plan: Patient this time continues with baseline confusion requiring redirection but no aggressive behavior or irritability today. Patient partially compliant with medications. We will continue current treatment as patient has been inconsistent with taking all of her medications. We will continue to monitor mood and behavior. Continue encourage patient compliant with medications as well as maintain personal hygiene. Discharge planning in progress. Justification for Continued Inpatient Stay: At risk of further decompensation at lower level care.
--- NOTE | 2018-05-05 14:22 | ECG ---
Date Performed: 05/03/2018 Time Performed: 15:32:51 PTAGE: 82 years EKG: ATRIAL FIBRILLATION WITH ABERRANT CONDUCTION OR VENTRICULAR PREMATURE COMPLEXES NONSPECIFIC ST & T-WAVE ABNORMALITY ABNORMAL ECG Compared to PREVIOUS TRACING atrial fibrillation is new as is the presence of ventricular ectopy PRE VIOUS TRACIN05/02/2018 07.18 DOCTOR: Trace Coles Interpretating Date/Time 05/05/2018 14:20:49
[2018-05-05] MEDS: Melatonin 5 MG Tablet PO SCH (20:35)
[2018-05-06] MEDS: Calcium Carbonate 500 MG Tablet PO SCH ×2 (08:50→20:03)
[2018-05-06] MEDS: Pantoprazole Sodium 20 MG DR Tablet PO SCH (08:51)
--- NOTE | 2018-05-06 11:45 | P.PNPSY ---
Subjective Remarks: Patient seen for follow-up, chart reviewed. Discussion with nursing staff reported that patient compliant with medications with encouragement, slept last night. Patient was found heavily on unit noted to be calm and cooperative smiling with good affect, with baseline confusion. Patient continues to make random statements, stating "you are right". But redirectable. Patient did not have any breakfast this morning and requiring encouragement to increase nutritional intake. Review of Systems All other systems reviewed negative except as stated in HPI Mental Status Examination Appearance: Appropriate Consciousness: Alert Orientation: Person Motor Activity: Normal gait Speech: Unremarkable Language: Adequate Fund of Knowledge: Inadequate Attention and Concentration: Easily distracted Memory: Impaired Mood: Other ("I'm fine") Affect: Euthymic Thought Process & Associations: Other (concrete) Thought Content: Other (flight of ideas) Hallucination Type: None Delusion Type: None Suicidal Ideation: No Suicidal Plan: No Suicidal Intention: No Homicidal Ideation: No Homicidal Plan: No Homicidal Intention: No Insight: Poor Judgment: Poor Assessment and Plan - Assessment (1) Dementia with behavioral disturbance Code(s): F03.91 - Unspecified dementia with behavioral disturbance Status: Acute - Plan Plan: Patient this time continues with baseline confusion, occasionally wandering but redirectable no aggressive behavior or irritability on the unit since admission. Patient compliant with medication with encouragement. Patient continues to have poor appetite. We will request dietitian for evaluation for recommendations. Continue rest of medications. Continue to monitor mood and behavior. Discharge planning in progress. Justification for Continued Inpatient Stay: At risk of further decompensation at lower level care.
[2018-05-06] MEDS: Melatonin 5 MG Tablet PO SCH (20:03)
[2018-05-07] MEDS: Calcium Carbonate 500 MG Tablet PO SCH ×3 (10:22→20:55)
[2018-05-07] MEDS: Pantoprazole Sodium 20 MG DR Tablet PO SCH ×2 (10:22→15:42)
--- NOTE | 2018-05-07 13:42 | P.PNPSY ---
Subjective Remarks: Patient seen for follow-up, chart reviewed. Discussion with nursing staff reported that patient refused medications this morning but we will continue to attempt to have patient take medications with encouragement. Patient was found sitting in hospital chair in the room noted to be calm and cooperative. Patient continued baseline confusion was able to interact adequately with staff and administrative underwriter today with very concrete responses but denies any physical complaints at this time. Patient was encouraged to comply with medications which she nodded in agreement. No episodes of agitation or irritability today not requiring any ETO's but easily redirectable. Review of Systems unobtainable due to mental condition Mental Status Examination Appearance: Appropriate Consciousness: Alert Orientation: Person Motor Activity: Normal gait Speech: Unremarkable Language: Adequate Fund of Knowledge: Inadequate Attention and Concentration: Easily distracted Memory: Impaired Mood: Other ("I'm fine") Affect: Euthymic Thought Process & Associations: Other (concrete) Thought Content: Other (flight of ideas) Hallucination Type: None Delusion Type: None Suicidal Ideation: No Suicidal Plan: No Suicidal Intention: No Homicidal Ideation: No Homicidal Plan: No Homicidal Intention: No Insight: Poor Judgment: Poor Assessment and Plan - Assessment (1) Dementia with behavioral disturbance Code(s): F03.91 - Unspecified dementia with behavioral disturbance Status: Acute - Plan Plan: Patient at this time continue a baseline confusion, easily redirectable, no episodes of agitation or irritability. No ETO's. Continue current treatment. Continue to monitor mood and behavior. Continue to encourage patient to comply with medication regimen, dietitian consult pending. Continue to encourage patient to increase p.o. nutritional intake. Discharge planning in progress. Justification for Continued Inpatient Stay: At risk of further decompensation at lower level care.
[2018-05-07] MEDS: Melatonin 5 MG Tablet PO SCH (20:55)
[2018-05-08] MEDS: Pantoprazole Sodium 20 MG DR Tablet PO SCH (08:57)
[2018-05-08] MEDS: Calcium Carbonate 500 MG Tablet PO SCH ×2 (08:57→20:29)
--- NOTE | 2018-05-08 10:28 | P.TTN ---
- Patient Problems Problems: 1. Discharge planning 2. Medication compliance 3. Knowledge deficit 4. Lack of coping skills - Progress Toward Goals Provider Present: Dr. Thais Adorno Provider Input: 05/07/18: Per MD pt stable on meds. Pt wanders sometimes through the hallways and towards exit doors. 05/05/18: Pt needed a ETO on Saturday. Pt is wandering into patients room. Patient is confused, hearinf impaired. Possibly increasing Respitrol. Nurse(s) Present: Yesi HULL Nurse Input: 05/07/18: Per RN pt has been arguing in the AM with another pt but she walks away. Med Compliant. 05/05/18: Inappropriate, walking down the halls with no pants on. Uncooperative with redirection. Med Compliant. Psychiatric Counselors Present: Sherlyn Davis [facility], Other Psychiatric Therapist Input: 05/06/18 Maried: Pt's insight and judgement is poor. Pt is pending to court this week. 05/05/18 Nuris: No insight, needs more rime, needs placement. Group Spec/RT/OT/PRATT Present: Leann Bates, GPS, Cole Marley, OT Group Spec/RT/OT/PRATT Input: 05/07/18: Pt attends some groups but gets disoriented sometimes during the activities. 05/05/18: Patient needs encouragement and guidance when attending the group activities. Pt is hearing impaired. - Discharge Plan 05/05/18: will discuss [place] for possible discharge. - Documentation Teaching Recipient: Patient
--- NOTE | 2018-05-08 12:26 | P.DIET ---
Nutritional Evaluation Type of nutrition evaluation: initial Nutrition screening: [facility] [place] Screening comments: 05/06/18 [facility] Poor PO Intake Subjective Subjective Comments: DELLA Mireles reports pt is usually "moving" around and it is difficult to get the pt to stay still long enough to eat a meal. It is noted that pt was reported "picking" at her breakfast tray this morning; however, pt's po intake for breakfast today is not known at time of this entry. It is also not known whether pt has had a BM recently r/t documented severe constipation. Discussed w /DELLA Mireles that pt's only recorded wt 05/01, is an Estimated wt. 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 - Objective % IBW: 227 Body Weight Used for Calculations: IBW (97 kg) Energy Needs - Lower Range (kCal/kg): 33 Energy Needs - Upper Range (kCal/kg): 38 Lower Limit kCal/kg (kCals): 1,455 Upper Limit kCal/kg (kCals): 1,676 Lower Limit Protein Factor (Grams per Kg): 1.9 Upper Limit Protein Factor (Grams per Kg): 2.2 Lower Protein Needs (Protein): 84 Upper Protein Needs (Protein): 97 Fluid Factor (ml/kg): 33 Estimated Fluid Needs (ml): 1,455 Dietitian Reviewed in Medical Record: Current diet, Curent medications, Intake & Output, Labs, Medical history Diet Order: Cardiac Oral Diet Intake Amount: Poor <50% Objective Comments: PMH includes: Anxiety, Dementia, Dysphagia, GERD, HLD, Insomnia, Muscle Weakness , Osteoporosis, Vit D deficiency Meds include: Milk of Mag, Oscal, Vit D3, Lactulose, Melatonin, Pravachol, Risperidone Assessment Assessment: Pt is at nutritional risk r/t very poor po intake less than 50% for meals. Send Ensure TID(= 250 kcal and 9g protein per serving). Monitor diet tolerance-pt w/h /o dysphagia. Pt receiving Milk of Mag for severe constipation. An ACTUAL wt is needed. Dietitian following. Recommendations: 1. Send Ensure TID 2. Monitor diet tolerance-pt w/h/o dysphagia 3. An ACTUAL wt is needed 4. Dietitian following Dietitian to Monitor: Lab values, Supplement acceptance, Intake & Output, Diet tolerance, Weight change, PO Intake, Medical course
--- NOTE | 2018-05-08 13:27 | P.PNPSY ---
Subjective Remarks: Patient seen for follow-up, chart reviewed. Discussion with nursing staff reported that patient was refusing medications this morning with stable continue to assist with patient taking medications today. Patient has not had any difficulty with compliant with medication and has been pretty consistent recent Depakote level was found to be within therapeutic limits. Patient presented to mental health court which patient was maintained on a continuance to find adequate residential facility which patient can be discharged to. Patient was found to ambulate on the hallway of the unit and noted to be calm and cooperative. Patient continues to have concrete responses continues to have nonsensical statements at times but no episodes of agitation or irritability and redirectable. Review of Systems All other systems reviewed negative except as stated in HPI Mental Status Examination Appearance: Appropriate Consciousness: Alert Orientation: Person Motor Activity: Normal gait Speech: Unremarkable Language: Adequate Fund of Knowledge: Inadequate Attention and Concentration: Easily distracted Memory: Impaired Mood: Other ("I'm fine") Affect: Euthymic Thought Process & Associations: Other (concrete) Thought Content: Other (flight of ideas) Hallucination Type: None Delusion Type: None Suicidal Ideation: No Suicidal Plan: No Suicidal Intention: No Homicidal Ideation: No Homicidal Plan: No Homicidal Intention: No Insight: Poor Judgment: Poor Assessment and Plan - Assessment (1) Dementia with behavioral disturbance Code(s): F03.91 - Unspecified dementia with behavioral disturbance Status: Acute - Plan Plan: Patient continues to be intrusive at times but redirectable. Patient continues to require encouragement to comply with medications. Patient Depakote level was found to be within therapeutic limits. We will continue current treatment. Continue to monitor mood and behavior. Patient was maintained on a continuous through mental health court. Discharge planning in progress. Justification for Continued Inpatient Stay: At risk of further decompensation at lower level care.
[2018-05-08] MEDS: Melatonin 5 MG Tablet PO SCH (20:27)
[2018-05-09] MEDS: Calcium Carbonate 500 MG Tablet PO SCH ×2 (08:42→21:00)
[2018-05-09] MEDS: Pantoprazole Sodium 20 MG DR Tablet PO SCH (08:42)
--- NOTE | 2018-05-09 12:45 | P.PNPSY ---
Subjective Remarks: Patient seen for follow-up, chart reviewed. Discussion with nursing staff reported that patient patient slept well last evening, continues to require redirection at times, ate breakfast this morning, continue to require encouragement for compliance of medications which she eventually takes. Patient was found sitting in the room noted to be calm and cooperative. Patient continued to be pleasantly confused, not noted to be intrusive, able to interact adequately. No episodes of agitation or irritability. Patient at times would be intrusive toward other patients food trays during mealtime and requiring redirection at that time. Patient would get more irritable during these moments which she requires more redirection with the potential of becoming agitated. Review of Systems All other systems reviewed negative except as stated in HPI Mental Status Examination Appearance: Appropriate Consciousness: Alert Orientation: Person Motor Activity: Normal gait Speech: Unremarkable Language: Adequate Fund of Knowledge: Inadequate Attention and Concentration: Easily distracted Memory: Impaired Mood: Other ("I'm fine") Affect: Euthymic Thought Process & Associations: Other (concrete) Thought Content: Other (flight of ideas) Hallucination Type: None Delusion Type: None Suicidal Ideation: No Suicidal Plan: No Suicidal Intention: No Homicidal Ideation: No Homicidal Plan: No Homicidal Intention: No Insight: Poor Judgment: Poor Assessment and Plan - Assessment (1) Dementia with behavioral disturbance Code(s): F03.91 - Unspecified dementia with behavioral disturbance Status: Acute - Plan Plan: Patient continues to require redirection particularly during mealtime which becomes very intrusive with other patients food and potentially becoming agitated but redirected up to now. We will add risperidone 0.25 mg at 1500 hrs. , continue rest of medications. Continue to monitor mood and behavior. Discharge planning in progress. Justification for Continued Inpatient Stay: At risk of further decompensation at lower level care.
[2018-05-09] MEDS: Melatonin 5 MG Tablet PO SCH (21:00)
[2018-05-10] MEDS: Calcium Carbonate 500 MG Tablet PO SCH ×3 (08:08→21:23)
[2018-05-10] MEDS: Pantoprazole Sodium 20 MG DR Tablet PO SCH (08:09)
--- NOTE | 2018-05-10 12:48 | P.PNPSY ---
Subjective Remarks: Pt seen and discussed with staff. She was admitted for aggression at [facility]. Staff report that pt has settled some today but remains intrusive and is hard to redirect. She refused medications this morning, but did take risperdal and depakote with coaxing from staff. No aggression today. Mental Status Examination Appearance: Appropriate Consciousness: Alert Orientation: Person Motor Activity: Normal gait Speech: Unremarkable Language: Adequate Fund of Knowledge: Inadequate Attention and Concentration: Easily distracted Memory: Impaired Mood: Irritable, Other Affect: Flat Thought Process & Associations: Other (concrete) Thought Content: Other (flight of ideas) Hallucination Type: None Delusion Type: None Suicidal Ideation: No Suicidal Plan: No Suicidal Intention: No Homicidal Ideation: No Homicidal Plan: No Homicidal Intention: No Insight: Poor Judgment: Poor Assessment and Plan - Assessment (1) Dementia with behavioral disturbance Code(s): F03.91 - Unspecified dementia with behavioral disturbance Status: Acute - Plan Plan: Continue current tx plan Justification for Continued Inpatient Stay: Continue current tx plan
[2018-05-10] MEDS: Melatonin 5 MG Tablet PO SCH ×2 (20:34→22:05)
--- NOTE | 2018-05-11 08:22 | P.PNPSY ---
Subjective Remarks: Reviewed electronic record and discussed with nursing staff. Rounded with DELLA Mahoney. Patient is still in bed. Nursing staff report that she has poor solid and fluid intake, will place a dietary consultation. She is preoccupied with making her bed and folding towels. She has been very intrusive, but nursing feels that this improving. Sleeping well. Review of Systems All other systems reviewed negative except as stated in HPI Mental Status Examination Appearance: Appropriate Consciousness: Alert Orientation: Person Motor Activity: Normal gait Speech: Unremarkable Language: Adequate Fund of Knowledge: Inadequate Attention and Concentration: Easily distracted Memory: Impaired Mood: Irritable, Other Affect: Flat Thought Process & Associations: Other (concrete) Thought Content: Other (flight of ideas) Hallucination Type: None Delusion Type: None Suicidal Ideation: No Suicidal Plan: No Suicidal Intention: No Homicidal Ideation: No Homicidal Plan: No Homicidal Intention: No Insight: Poor Judgment: Poor Assessment and Plan - Assessment (1) Dementia with behavioral disturbance Code(s): F03.91 - Unspecified dementia with behavioral disturbance Status: Acute - Plan Plan: Continue current tx plan Justification for Continued Inpatient Stay: Moving patient to a less restrictive environment may result in her decompensation.
[2018-05-11] MEDS: Calcium Carbonate 500 MG Tablet PO SCH ×2 (08:52→21:46)
[2018-05-11] MEDS: Pantoprazole Sodium 20 MG DR Tablet PO SCH (08:52)
[2018-05-11] MEDS: Melatonin 5 MG Tablet PO SCH (21:44)
[2018-05-12] MEDS: Calcium Carbonate 500 MG Tablet PO SCH ×3 (08:56→21:09)
[2018-05-12] MEDS: Pantoprazole Sodium 20 MG DR Tablet PO SCH (08:56)
--- NOTE | 2018-05-12 14:40 | P.PNPSY ---
Subjective Remarks: Patient seen for follow-up, chart reviewed. Discussion with nursing staff reported that patient taking medications more redirectable, sleeping well. Patient was found and ablated on the unit that B, cooperative. Continues with baseline confusion with occasional nonsensical statements. Patient had a few medications last night but was able to comply this morning. Recent Depakote level was within therapeutic limits but we will order repeat lab work to monitor nutritional status this patient continues to have poor nutritional intake requiring encouragement for this. Review of Systems All other systems reviewed negative except as stated in HPI Mental Status Examination Appearance: Appropriate Consciousness: Alert Orientation: Person Motor Activity: Normal gait Speech: Unremarkable Language: Adequate Fund of Knowledge: Inadequate Attention and Concentration: Easily distracted Memory: Impaired Mood: Appropriate Affect: Appropriate Thought Process & Associations: Other (concrete) Thought Content: Other (flight of ideas) Hallucination Type: None Delusion Type: None Suicidal Ideation: No Suicidal Plan: No Suicidal Intention: No Homicidal Ideation: No Homicidal Plan: No Homicidal Intention: No Insight: Poor Judgment: Poor Assessment and Plan - Assessment (1) Dementia with behavioral disturbance Code(s): F03.91 - Unspecified dementia with behavioral disturbance Status: Acute - Plan Plan: Patient continues with confusion, requiring redirection at times, less intrusive , no episodes of agitation or irritability recently. We will order a CMP as well as mid-level to monitor his chemistries. Continue rest of medications. Continue to monitor mood and behavior. Discharge planning in progress. Justification for Continued Inpatient Stay: At risk of further decompensation at lower level care.
[2018-05-12 16:58] LABS: Alanine Aminotransferase 31 U/L (10-53); Albumin 3.5 g/dL (3.4-5.0); Anion Gap 5 meq/L (5-15); Aspartate Aminotransferase 25 U/L (15-37); Blood Urea Nitrogen 22 mg/dL (7-18); Calcium 8.4 mg/dL (8.5-10.1); Chloride 108 meq/L (98-107); Glomerular Filtration Rate Greater Than 89 mL/min (>89); Glucose,Random 103 mg/dL (74-106); Potassium 4.2 meq/L (3.5-5.1); Sodium 142 meq/L (136-145)
[2018-05-12 17:01] LABS: Alkaline Phosphatase 58 U/L (45-117)
--- NOTE | 2018-05-12 17:29 | P.DIET ---
Nutritional Evaluation Type of nutrition evaluation: follow-up Nutrition [place] [facility] [place]: 05/11/18 [facility] [place] PO Intake-poor solid and fluid intake 05/06/18 [facility] [place] PO Intake Subjective Subjective Comments: Pt "guarding" the door to the Nursing station after lunch today. DELLA Mireles reports pt seems to be doing better w/her meals-lunch and dinner 25%. A review of I&O sheet w/pt po intake 240ml for fluids w/meals recorded. DELLA Mireles also reports pt swallowing oral meds w/o problem. 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 - Objective % IBW: 86 Body Weight Used for Calculations: IBW (97 kg), Actual (38 kg) Energy Needs - Lower Range (kCal/kg): 30 Energy Needs - Upper Range (kCal/kg): 35 Lower Limit kCal/kg (kCals): 1,140 Upper Limit kCal/kg (kCals): 1,330 Lower Limit Protein Factor (Grams per Kg): 1.2 Upper Limit Protein Factor (Grams per Kg): 1.5 Lower Protein Needs (Protein): 46 Upper Protein Needs (Protein): 57 Fluid Factor (ml/kg): 30 Estimated Fluid Needs (ml): 1,140 Dietitian Reviewed in Medical Record: Current diet, Curent medications, Intake & Output, Labs, Medical history Diet Order: Cardiac Oral Diet Intake Amount: Poor <50% Objective Comments: PMH includes: Anxiety, Dementia, Dysphagia, GERD, HLD, Insomnia, Muscle Weakness , Osteoporosis, Vit D deficiency A1C 5.9 Meds include: Milk of Mag, Oscal, Vit D3, Lactulose, Melatonin, Pravachol, Risperidone Feeding - Current PO Supplement Current Supplement: Ensure Original Current Frequency of Supplement: Three times a day Current kCals Provided by Supplement: 250 Current Protein Provided by Supplement: 9 Assessment Assessment: Pt continues at nutritional risk r/t very poor po intake less than 50% for meals and low BMI 16.9. Rec liberalizing diet to Regular to allow for increased menu options. Continue Ensure TID. Send Mighty Shakes TID for an added supplement option. Continue to Monitor diet tolerance. Dietitian following. Recommendations: 1. Rec liberalizing diet to Regular to allow for increased menu options 2. Continue Ensure TID 3. Send Mighty Shakes TID for an added supplement option 4. Continue to Monitor diet tolerance 5. Dietitian following Dietitian to Monitor: Lab values, Supplement acceptance, Intake & Output, Diet tolerance, Weight change, PO Intake, Medical course
[2018-05-12] MEDS: Melatonin 5 MG Tablet PO SCH ×2 (20:01→21:10)
[2018-05-13] MEDS: Calcium Carbonate 500 MG Tablet PO SCH ×2 (09:06→20:05)
[2018-05-13] MEDS: Pantoprazole Sodium 20 MG DR Tablet PO SCH (09:06)
--- NOTE | 2018-05-13 13:20 | P.PNPSY ---
Subjective Remarks: Patient seen in day room with floor staff, chart reviewed, patient's remix complaints medication. At this time she is sitting calmly in the dayroom she is pleasantly confused but did smile at me. Review of Systems All other systems reviewed negative except as stated in HPI Mental Status Examination Appearance: Appropriate Consciousness: Alert Orientation: Person Motor Activity: Normal gait Speech: Unremarkable Language: Adequate Fund of Knowledge: Inadequate Attention and Concentration: Easily distracted Memory: Impaired Mood: Appropriate Affect: Appropriate Thought Process & Associations: Other (concrete) Thought Content: Other (flight of ideas) Hallucination Type: None Delusion Type: None Suicidal Ideation: No Suicidal Plan: No Suicidal Intention: No Homicidal Ideation: No Homicidal Plan: No Homicidal Intention: No Insight: Poor Judgment: Poor Assessment and Plan - Assessment (1) Dementia with behavioral disturbance Code(s): F03.91 - Unspecified dementia with behavioral disturbance Status: Acute - Plan Plan: Patient continues confused demented though no behavior problems at this time. For now continue treatment Justification for Continued Inpatient Stay: At this time patient with decompensated placed on lower level of care Discharge Planning: To be determined
[2018-05-13] MEDS ORDERED: Haloperidol Inj 5 MG/ML Ampul ONE (17:29)
[2018-05-13] MEDS ORDERED: Haloperidol Inj 5 MG/ML Ampul IM ONE (18:30)
[2018-05-13] MEDS: Melatonin 5 MG Tablet PO SCH (20:05)
[2018-05-14 06:24] VITALS: TEMP 98.6
[2018-05-14] MEDS: Calcium Carbonate 500 MG Tablet PO SCH ×2 (09:38→20:39)
[2018-05-14] MEDS: Pantoprazole Sodium 20 MG DR Tablet PO SCH (09:38)
--- NOTE | 2018-05-14 11:37 | P.PNPSY ---
Subjective Remarks: Patient seen for follow-up, chart reviewed. Discussion with nursing staff reported that patient has been possibly accepted to [facility] and rehab, no behavioral disturbances, continue with have marginal nutritional intake requiring encouragement, has been more compliant with medications. Patient was found sitting in hospital chair B, cooperative. Less distractibility and tangentiality today. Patient denies any physical complaints, continues to have baseline confusion. Patient was encouraged to maintain adequate nutritional intake and adherence to medication which he simply smiles and begins occasional rambling. Review of Systems All other systems reviewed negative except as stated in HPI Mental Status Examination Appearance: Appropriate Consciousness: Alert Orientation: Person Motor Activity: Normal gait Speech: Unremarkable Language: Adequate Fund of Knowledge: Inadequate Attention and Concentration: Easily distracted Memory: Impaired Mood: Appropriate Affect: Appropriate Thought Process & Associations: Other (concrete) Thought Content: Other (flight of ideas) Hallucination Type: None Delusion Type: None Suicidal Ideation: No Suicidal Plan: No Suicidal Intention: No Homicidal Ideation: No Homicidal Plan: No Homicidal Intention: No Insight: Poor Judgment: Poor Assessment and Plan - Assessment (1) Dementia with behavioral disturbance Code(s): F03.91 - Unspecified dementia with behavioral disturbance Status: Acute - Plan Plan: Patient continued baseline confusion no behavioral disturbances, has been compliant cooperative with staff. We will continue current treatment. Continue to encourage patient to maintain adequate nutritional and fluid intake and compliant with medications. Continue to monitor mood and behavior. Discharge planning in progress. Justification for Continued Inpatient Stay: At risk of further decompensation at lower level care.
--- NOTE | 2018-05-14 15:30 | P.TTN ---
- Patient Problems Problems: 1. Discharge planning 2. Medication compliance 3. Knowledge deficit 4. Lack of coping skills - Progress Toward Goals Provider Present: Dr. Thais Adorno Provider Input: 05/14/18 Per MD Pt med were adjusted and she is currently stable on meds. Pt ready for discharge when placement is found. 05/12/18 A dose of Risperdal was added in the afternoon .25. She has been taking her meds mixed with her food. 05/07/18: Per MD pt stable on meds. Pt wanders sometimes through the hallways and towards exit doors. 05/05/18: Pt needed a ETO on Saturday05/04/18. Pt is wandering into patients room. Patient is confused, hearinf impaired. Possibly increasing Respitrol. Nurse(s) Present: Yesi HULL Nurse Input: 05/14/18 She is eating okay. Meds compliant and enjoys walking around the halls. 05/12/18 She is not eating well. Difficult staying seated, walking a lot. 05/07/18: Per RN pt has been arguing in the AM with another pt but she walks away. Med Compliant. 05/05/18: Inappropriate, walking down the halls with no pants on. Uncooperative with redirection. Med Compliant. Psychiatric Counselors Present: Sherlyn Davis [facility], Other Psychiatric Therapist Input: 05/14/18 Maried: Pt is waiting on lvl 1 to be completed since she has been accepted at [facility] and rehab. 05/12/18 Patient communicates often with [place] on the unit. 05/06/18 Maried: Pt's insight and judgement is poor. Pt is pending to court this week. 05/05/18 Nuris: No insight, needs more rime, needs placement. Group Spec/RT/OT/PRATT Present: Leann Bates, GPS, Cole Marley, OT, Cesario Louis, [facility] Group Spec/RT/OT/PRATT Input: 05/14/18 Per Leann, pt unable to tolerate group activities. 05/12/18 Minimal group participation. 05/07/18: Pt attends some groups but gets disoriented sometimes during the activities. 05/05/18: Patient needs encouragement and guidance when attending the group activities. Pt is hearing impaired. - Discharge Plan 05/05/18: will discuss [place] for possible discharge. - Documentation Teaching Recipient: Patient
[2018-05-14] MEDS: Melatonin 5 MG Tablet PO SCH (20:38)
[2018-05-15] MEDS: Calcium Carbonate 500 MG Tablet PO SCH (00:44)
[2018-05-15] MEDS: Melatonin 5 MG Tablet PO SCH (00:46)
[2018-05-15 06:19] VITALS: BP 95/50; PULSE 66; RESP 16; O2SAT 95
--- NOTE | 2018-05-15 11:59 | P.DSPSY ---
Psychiatry Discharge Summary Inpatient Psychiatric care?: Yes Advance Directives: No Reason for Unknown:: Due to Patient Condition Mental Health Advance Directive: No Health Care Proxy: No - Admission Admission Date: May 01, 2018 19:43 - Admission Diagnosis (1) Dementia with behavioral disturbance Code(s): F03.91 - Unspecified dementia with behavioral disturbance Brief History: Patient is a 82-year-old woman, domiciled in a nursing facility were previously living at home with son, with a past psychiatric history of dementia with anxiety along with past medical history significant for hyperlipidemia GERD which patient was brought in under [facility] after patient was having "violent behaviors, hitting by others at staff and verbally aggressive and threatening" as per correction report which patient was admitted to the inpatient psychiatry unit for further evaluation and management. Patient was found heavily on unit unable to provide any adequate history, rambling at times and noted with baseline confusion requiring much redirection as patient constantly would wander into other patient's rooms. As per chart patient was aggressive toward providers in the ED but since transfer to the inpatient unit has not noted to have any aggressive behavior or threatening behavior toward others. Collateral admission obtained by patient's son who will serve as patient health stated that prior to correction he was the primary despatching and receiving clerk and had been recently at this nursing facility for 3 months with episodes of agitation and aggressive behavior toward others which modification for treatment had been unsuccessful when she continued with this behavior. 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 He mentions the patient did a lot of wandering in correction there was previous to tried on Xanax with not much response to current behavior. As per chart patient has Depakote level which is therapeutic limits. Discussion of continuing current medication regimen was reviewed with patient's son to include Depakote and risperidone along with medications for chronic medical illnesses which she agreed and with modification of treatment as her admission progress. Rest of history unable to obtain due to patient's current mental status and neurocognitive deficits secondary to dementia. Tobacco Use In Past 30 Days: No How Often Do You Have a Drink Containing Alcohol: Unable to Obtain Hospital Course: Patient is a 82-year-old woman, domiciled in a nursing facility were previously living at home with son, with a past psychiatric history of dementia with anxiety along with past medical history significant for hyperlipidemia GERD which patient was brought in under [facility] after patient was having "violent behaviors, hitting by others at staff and verbally aggressive and threatening" as per correction report which patient was admitted to the inpatient psychiatry unit for further evaluation and management. Patient was admitted to a locked, inpatient psychiatric unit. Appropriate precautions were in place throughout patient's hospital stay. Patient was seen and examined on the unit by psychiatry. Psychotropic medications were adjusted. There was no evidence of any suicidality or homicidality on the inpatient unit. Patient's mood and behavior improved with the benefit of psychopharmacological treatment and had no further behavioral disturbance since admission. Patient was noted to have reached stable mood, noted to participate and engage in treatment and interact with staff adequately. Patient noted to continue with baseline confusion secondary to neurocognitive deficits. Counselor has arranged discharge plan. On the day of discharge: Patient seen and examined; chart reviewed. Case discussed with nurse and counselor. No behavioral issues overnight. On my examination today, the patient with no physical complaints, continues with baseline confusion. Suicide and violence risk assessment on day of discharge both suggest lower imminent risk, and the patient's level of function is adequate for plan level of outpatient care. Patient has maximized benefit from this inpatient psychiatric hospital stay and will be discharged with discharge plan as arranged by counselor. Patient advised to return to psychiatric emergency room for any concerning psychiatric symptoms. Patient agrees with plan. - Discharge Discharge Date: 05/15/18 - Discharge Diagnosis (1) Dementia with behavioral disturbance Code(s): F03.91 - Unspecified dementia with behavioral disturbance Status: Acute Discharge Disposition: Residential Facility - Discharge Instructions Discharge Diet: Heart Healthy Diet Activities You Can Perform: Weight Bearing As Tolerat - Discharge Time > 30 minutes Mental Status Examination Appearance: Appropriate Consciousness: Alert Orientation: Person Motor Activity: Normal gait Speech: Unremarkable Language: Adequate Fund of Knowledge: Inadequate Attention and Concentration: Easily distracted Memory: Impaired Mood: Appropriate Affect: Appropriate Thought Process & Associations: Other (concrete) Thought Content: Other (flight of ideas) Hallucination Type: None Delusion Type: None Suicidal Ideation: No Suicidal Plan: No Suicidal Intention: No Homicidal Ideation: No Homicidal Plan: No Homicidal Intention: No Insight: Poor Judgment: Poor Discharge/Advance Care Plan - Results Vital Signs: Last Vital Signs Temp 98.6 F 05/14/18 06:00 Pulse 66 05/15/18 06:17 Resp 16 05/15/18 06:17 BP 95/50 L 05/15/18 06:17 Pulse Ox 95 05/15/18 06:17 Lab Results: Laboratory Results Hemoglobin A1c 5.9 % (4.3-6.0) 05/02/18 08:21 Triglycerides 55 mg/dL (42-150) 05/02/18 08:21 Cholesterol 146 mg/dL (120-200) 05/02/18 08:21 LDL Cholesterol, Calc 64 mg/dL (0-99) 05/02/18 08:21 HDL Cholesterol 70.9 mg/dL (40.0-60.0) H 05/02/18 08:21 TSH 2.160 uIU/mL (0.358-3.740) 05/01/18 18:20 Free T4 0.88 ng/dL (0.76-1.46) 05/02/18 08:21 Valproic Acid 65 mcg/mL (50-100) 05/08/18 06:35 Summary of Procedures: none Pending Results: None - Medications Number of antipsychotic medications at discharge: 1 - Discharge Care Plan Goals to Promote Your Health: * To prevent worsening of your condition and complications * To maintain your health at the optimal level Directions to Meet Your Goals: Take your medications as prescribed Follow your dietary instruction Follow activity as directed Keep your appointments as scheduled Take your immunizations and boosters as scheduled If your symptoms worsen call your PCP, if no PCP go to Urgent Care Center or Emergency Room For 24/12 questions related to your inpatient stay or results of tests pending at discharge, please contact Dr. Andrade Adorno MD at Smoking is Dangerous to Your Health. Avoid second hand smoking
== END 2018-05-15 15:15 | disposition home or self-care (01) ==
LOC: NEDAMB 15:31 → NEDA 19:43 → H250 21:04
PROVIDERS: ADMIT Student in an Organized Health Care Education/Training Program; ATTEND Student in an Organized Health Care Education/Training Program